=== PATIENT | female | born 1970 | race Caucasian/White ===

== ENCOUNTER 2016-09-24 18:12 | Observation (INO) | payer SELFPAY ==
[~2016-09-24] VITALS: Ht 175.3 cm; Wt 81.6 kg
[2016-09-25] MEDS ORDERED: ADVIL200 MG PO (08:10)
[2016-09-25] MEDS ORDERED: FLEXERIL10 MG PO (09:23)
[2016-09-25] MEDS ORDERED: TYLENOL325 MG PO ×2 (09:29→09:30)
[2016-09-25] MEDS ORDERED: PREDNISONE10 MG PO (09:33)
== END 2016-09-25 13:30 | disposition short-term general hospital (02) ==
LOC: ER 18:12 → IP 20:50 → OBS 20:50 → ER 20:50 → IP 20:50
PROVIDERS: ADMIT Family Medicine
DX: M54.5 Low back pain (principal); Z86.69 Personal history of other diseases of the nervous system and sense organs; Z98.51 Tubal ligation status; Z88.2 Allergy status to sulfonamides; Z87.891 Personal history of nicotine dependence
CPT/HCPCS: G0378; J1170; J1885; J8499